=== PATIENT | male | born 1980 | race Caucasian/White ===

== ENCOUNTER 2016-11-16 14:55 | Emergency (ER) | payer OTHER ==
[~2016-11-16] VITALS: Ht 190.5 cm; Wt 120.4 kg
[2016-11-16 15:16] VITALS: BP 164/81
[2016-11-16] MEDS ORDERED: LIDOCAINE 2% 20 ML VIAL. IJ ONE (15:30)
[2016-11-16] MEDS ORDERED: HYDR-971 PO (16:33)
[2016-11-16] MEDS ORDERED: MUPI15CR TP (16:33)
[2016-11-16] MEDS ORDERED: SULF1TAB24 PO (16:33)
--- NOTE | 2016-11-16 16:38 | PHYS DOC ---
General Chief Complaint: TOE PROBLEM Stated Complaint: TOE INJURY Time Seen by MD: 15:11 Source: patient Exam Limitations: no limitations Problems: History of Present Illness Initial Comments Pt is 36/M to ED c/o left hallux injury. Immediately prior to arrival at home pt walking up stairs, accidentally caught distal L hallux nail on step edge bending the nail back greater than 90 degrees. Pain/bleeding initially, both have calmed down pt here needing the toenail dealt with. Td status unknown, no other injury. Onset: just prior to arrival Severity: severe Pain/Injury Location: left 1st toe Method of Injury: direct blow Modifying Factors: worse with jarring, worse with movement, improves with rest Allergies: Coded Allergies: amoxicillin (Verified Allergy, Unknown, 11/16/16) Past Medical History Medical History: no pertinent history Surgical History: noncontributory Social History Smoker: non-smoker Alcohol: none Drugs: none Review of Systems Constitutional: denies chills, denies fever Respiratory: denies cough, denies shortness of breath Cardiovascular: denies chest pain, denies palpitations Gastrointestinal: denies nausea, denies vomiting Musculoskeletal: see HPI Skin: see HPI Psychiatric/Neurological: denies headache, denies numbness, denies paresthesia , denies weakness Physical Exam General Appearance: WD/WN, no apparent distress HEENT: normal ENT inspection Neck: non-tender, supple Cardiovascular/Respiratory: normal peripheral pulses, no respiratory distress Feet: left foot other (left hallux bent back greater than 90 degrees, dried blood laterally no bony involvement ligs/tendons intact) Neurologic/Tendon: normal sensation, normal motor functions, normal tendon functions, responds to pain, no evidence tendon injury Psychiatric: alert, oriented x 3 Skin: normal color, warm/dry Additional Procedures Progress Left Hallux Toenail Removal. Informed consent obtained. Analgesia with 2% lidocaine 4ml Nail cutters with removal of nail distal to nail bed, no nail bed trauma. Wound cleansed, no stick sterile dressing/bactroban applied by ED staff. Tolerated well no complications see departure for wound care. Departure Time of Disposition: 16:34 Disposition: 01 HOME, SELF-CARE Diagnosis: traumatic left hallux nail avulsion Condition: IMPROVED Patient Instructions: Nail Avulsion Injury, RICE - Routine Care for Injuries, [id number] Additional Instructions: Off work thru 5/17 as needed. Limited standing/walking at work for 7 days. RICE, see handout. Keep covered with sterile dressing until completely healed. Keep dry for 48 hours. After 48 hours may wash briefly twice daily with soap and warm water, blot dry. Change dressing/apply bactroban ointment each dressing change. Allow wound to air dry one hour daily. Rx: bactrim ds, bactroban ointment, norco 5mg #15 Take meds with food to avoid nausea. Follow up with your doctor in 3-5 days for wound check. Return to ED with new or changing symptoms. NITESH TORREZ DO November 16, 2016 16:38
[2016-11-16] MEDS ORDERED: HYDROcodone/APAP 10/325 1 TAB TABLET PO ONE (16:45)
[2016-11-16] MEDS ORDERED: SMZ/TMP 800/160MG TABLET. PO ONE (16:45)
[2016-11-16] MEDS ORDERED: ONDANSETRON ODT 4 MG TAB.RAPDIS PO ONE (16:45)
[2016-11-16] MEDS ORDERED: MUPIROCIN 2% TOPICAL OINTMENT 22GM TUBE. TP SCH (21:00)
== END 2016-11-16 17:15 | disposition home or self-care (01) ==
LOC: ER 14:55
DX: S91.202A Unspecified open wound of left great toe with damage to nail, initial encounter (principal); Z88.1 Allergy status to other antibiotic agents; W23.0XXA Caught, crushed, jammed, or pinched between moving objects, initial encounter; Y93.01 Activity, walking, marching and hiking; Y99.8 Other external cause status; Y92.89 Other specified places as the place of occurrence of the external cause
CPT/HCPCS: 11730; 99284; Q0162; J2001

== ENCOUNTER → 2021-08-21 | Outpatient (CLI) | payer OTHER ==
[~2021-08-21] MED LIST: HYDR-3165 PO; MUPI15CR TP; SULF1TAB24 PO
--- NOTE | 2021-08-21 13:53 | RAD ---
EXAM: 3 views of the left elbow DATE: 08/21/2021 1:37 PM INDICATION: Reason: hurt elbow this morning, pain, bruising / Spl. Instructions: / History: COMPARISON: No Prior FINDINGS: No elbow joint effusion. No acute fracture or dislocation. No significant degenerative changes. No si gnificant soft tissue swelling. IMPRESSION: No acute fracture or dislocation. Electronically signed by: Thai Galvan DO (08/21/2021 1:51 PM) [id number]
== END ==
LOC: RAD 13:22
PROVIDERS: ATTEND Family Medicine
DX: S59.902A Unspecified injury of left elbow, initial encounter (principal); X58.XXXA Exposure to other specified factors, initial encounter; Y93.89 Activity, other specified; Y92.89 Other specified places as the place of occurrence of the external cause; Y99.8 Other external cause status
CPT/HCPCS: 73080